=== PATIENT | female | born 1990 | race Two or more races ===

== ENCOUNTER 2024-12-02 10:08 | Outpatient (REF) | payer OTHER, SELFPAY ==
--- OUTSIDE RECORDS SUMMARY | 2024-12-02 10:16 | XMS_ITS | Clinical Summary ---
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 Name Role Phone Unavailable Primary Care Provider Unavailabl e Immunizations Immunization Administration Dates Next Due DTP 03/01/1996, 3,01/30/1992,1991,1991 HPV, Quadrivalent 10/21/2007,08/16/2007 Hep B, ped/adol 12/30/1997,05/01/1996,03/01/1996 Hib (PRP-T) 09/01/1992, 2,1991,1991 IPV 03/01/1996, 3,1991,1991 Influenza, injectable, trivalent 06/15/2008 MMR 05/01/1996,09/01/1992 Td (adult) (MBL), 2 Lf tetan us toxoid, PF, adsorbed 06/02/2002 Family History Relation Name Status Comments Brother Alive Brother: Asthma , Alive and well, ADD/ADHD Father Alive Father: Alive a nd well Mother Mother: Endomet riosis Social History Tobacco Use Types Packs/Day Years Used Date Smoking Tobacco: Never Assessed Comments Unknown Sex and Gender Information Value Date Recorded Sex Assigned at Not on file Legal Sex Female 4:40 PM EDT Gender Identity Not on file Sexual Orientation Not on file Plan of Treatment Health Maintenance Due Date Last Done Comments DTaP,Tdap,and Td Vaccines (6 - Tdap) 06/03/2002 06/02/2002, 03/01/1996, 03/01/1993, Additional history exists Varicella Vaccines (1 of 2 - 13+ 2-dose series) 2004 HPV Vaccines (3 - 3-dose series) 02/14/2008 10/21/2007, 08/16/2007 Influenza Vaccines (#1) 2024 06/15/2008 COVID-19 Vaccine ( season) 2024 HIB Vaccines Completed 09/01/1992, 01/02, 1991, Additional history exists IPV Vaccines Completed 03/01/1996, 02/01, 1991, Additional history exists MMR Vaccines Completed 05/01/1996, 09/01/1992 Hepatitis B Vaccines Completed 12/30/1997, 05/01/1996, 03/01/1996 Hepatitis A Vaccines Aged Out No long er eligible based on patient's age to complete this topic Men B Vaccine Aged Out No longer elig ible based on patient's age to complete this topic Meningococcal Vaccine Aged Out No laya emilee eligible based on patient's age to complete this topic Pneumococcal Vaccine Aged Out No long er eligible based on patient's age to complete this topic
[2024-12-02 11:47] LABS: MANUAL DIFF FLAG NO
[2024-12-02 12:09] LABS: Basophils Percent Auto 0.2 % (0-2); Eosinophils Absolute Auto 0.1 X10*3/uL (0.0-0.4); Eosinophils Percent Auto 2.2 % (0-4); Hematocrit 40.4 % (37.0-47.0); Hemoglobin 12.7 g/dl (12.0-16.0); Imm Gran Abs Auto 0.01 X10*3/uL (0.00-0.03); Imm Gran Pct Auto 0.2 % (0.0-0.4); Lymphocytes Absolute Auto 2.5 X10*3/uL (1.2-4.9); Lymphocytes Percent Auto 42.7 % (20-40); Mean Corpuscular HGB Conc 31.4 g/dl (31.0-35.0); Mean Corpuscular Hemoglobin 26.7 pg (27.0-33.0); Mean Corpuscular Volume 85.1 fL (80.0-98.0); Mean Platelet Volume 9.8 fL (9.4-12.3); Monocytes Absolute Auto 0.3 X10*3/uL (0.1-1.2); Monocytes Percent Auto 4.9 % (2-11); Neutrophils Absolute Auto 2.9 x10*3/uL (2.0-8.3); Neutrophils Percent Auto 49.8 % (45-73); Platelet Count 368 X10*3/uL (160-400); Red Blood Count 4.75 X10*6/uL (4.20-5.50); White Blood Count 5.9 X10*3/uL (4.8-10.8)
[2024-12-02 12:49] LABS: Alanine Aminotransferase 22 U/L (0-31); Albumin Level 3.8 g/dL (3.5-5.0); Anion Gap 11 (12-20); Aspartate Amino Transferase 28 U/L (5-31); Bilirubin Total 0.3 mg/dL (0.0-1.0); Blood Urea Nitrogen 7 mg/dL (9-16); Calcium 8.6 mg/dL (8.4-10.2); Carbon Dioxide 27 mmol/L (22-29); Chloride 106 mmol/L (96-108); Cholesterol 147 mg/dL (<200); Estimated Glomerular Filt Rate > 60; Glucose Random 101 mg/dL (60-115); HDL Cholesterol 30 mg/dL (>40); LDL Cholesterol Calculated 103 mg/dL (<100); Potassium 3.6 mmol/L (3.3-5.1); Sodium 140 mmol/L (135-145); Thyroid Stimulating Hormone 3.37 uIU/mL (0.32-4.0); Total Protein 8.2 g/dL (6.5-8.0); Triglycerides 73 mg/dL (<150)
[2024-12-02 13:12] LABS: Alkaline Phosphatase 70 U/L (39-117)
== END 2024-12-02 10:09 | disposition home or self-care (01) ==
LOC: HO.HMGCLDS 10:08
PROVIDERS: PCP Internal Medicine; Visit Provider Internal Medicine
DX: D64.9 Anemia, unspecified (principal); E66.01 Morbid (severe) obesity due to excess calories; I10 Essential (primary) hypertension; Z00.00 Encounter for general adult medical examination without abnormal findings; Z12.4 Encounter for screening for malignant neoplasm of cervix
CPT/HCPCS: 36415; 80053; 80061; 84443; 85025